=== PATIENT | female | born 1950 | race Caucasian/White ===

== ENCOUNTER 2018-02-07 11:27 | Inpatient (IN) ==
[2018-02-07] MEDS ORDERED: Sod Chloride 0.9% Inj 1,000 ML IV.SIG ONE (12:08)
[2018-02-07] MEDS ORDERED: Acetaminophen 325 MG Tablet PO ONE (12:08)
--- NOTE | 2018-02-07 12:20 | ED ---
HPI General Chief complaint: Respiratory Symptoms Stated complaint: Respiratory/Fever/dizziness Time Seen by Provider: 02/07/18 12:02 History of Present Illness HPI narrative: 67-year-old female presents to the emergency department for evaluation of respiratory complaint. Patient states that yesterday she began to have a sore throat, cough and nausea. States that her cough is productive with green sputum. States that last night she began running a fever 102F. She complains of lightheadedness, chills and body aches that began today. She is here visiting family from [facility]. She does have a history of asthma, states that she has not needed to use her albuterol inhaler yet today. Denies any sick contacts or travel outside the [place]. Denies any chest pain, shortness of breath, difficulty breathing, abdominal pain, diarrhea, constipation. No other complaints or concerns. Related Data Home Medications Medication Instructions Recorded Confirmed albuterol sulfate [Ventolin HFA] 02/07/18 02/07/18 albuterol sulfate [Ventolin HFA] puff INHALATION Q4-6H PRN 02/07/18 amlodipine 10 mg PO DAILY 02/07/18 02/07/18 budesonide-formoterol [Symbicort] 2 puff INHALATION BID PRN 02/07/18 02/07/18 levothyroxine [Synthroid] 50 mcg PO DAILY 02/07/18 02/07/18 valsartan 02/07/18 Allergies Allergy/AdvReac Type Severity Reaction Status Date / Time No Known Allergies Allergy Unverified 02/07/18 12:11 Review of Systems ROS: all other systems reviewed are negative [facility] Medical History Medical History Asthma (Acute) HTN (hypertension) (Acute) Hypothyroid (Acute) Murmur, cardiac (Acute) Social History Social History Smoking Status: Never smoker How Often Do You Have a Drink Containing Alcohol: Never Recent Travel in [facility] within the Last 8 Weeks: No Recent Out of Country Travel within the Last 8 Weeks: No Immunization History Tetanus Immunization: <5 Years Hx Influenza Vaccine This Season: No Exam Narrative Exam Narrative: GENERAL: Well-nourished and well-developed pleasant female patient in no acute distress who is nontoxic appearing. SKIN: Warm and dry without any obvious rashes or lesions. HEAD: Normocephalic and atraumatic. EYES: No injection, drainage, or hyphema noted. PERRLA. EOMI. ENT: No nasal drainage noted. Oropharynx is clear and the TMs are normal with good landmarks. NECK: Supple and the trachea is midline. No lymphadenopathy is noted throughout the cervical chains. CARDIOVASCULAR: Regular rate and rhythm. RESPIRATORY: Wheezing to right lung. No accessory muscle use, rhonchi, or crackles. GASTROINTESTINAL: Abdomen is soft, non-tender, and nondistended. No hepatosplenomegaly. MUSCULOSKELETAL: No obvious deformities, swelling, cyanosis, or ecchymosis is present throughout the upper and lower extremities. Patient has full range of motion without any signs of neurovascular compromise. Distal pulses are 2+ throughout. NEUROLOGICAL: Awake, alert, and oriented. Normal speech and gait. Cranial nerves are grossly intact. Course Initial Documented Vital Signs Temperature 102.8 F H 02/07/18 11:33 Pulse Rate 103 H 02/07/18 11:33 Respiratory Rate 22 02/07/18 11:33 Blood Pressure 144/63 H 02/07/18 11:33 Pulse Oximetry 93 L 02/07/18 11:33 Last Documented Vital Signs Temperature 102.8 F H 02/07/18 11:33 Pulse Rate 86 02/07/18 13:16 Respiratory Rate 22 02/07/18 13:16 Blood Pressure 132/66 02/07/18 12:04 Pulse Oximetry 94 L 02/07/18 12:08 Medical Decision Making LAURA Attestation LAURA supervised visit: Yes Attestation: I, Dr. Cuevas, have reviewed the advance practice practitioner's documentation and am in agreement, met with the patient face to face, made the diagnosis, and the medical decision making was done by me. *My assessment and Findings: Patient seen and evaluated with PA, please see PA notes for further details. Has previous history of respiratory issues and bronchitis, here for worsening in symptoms and fevers, chest x-ray showing signs of a pneumonia. IV antibiotics were initiated in the ER. Nebulizers were initiated in the ER. Planning to admit the patient for further treatment based on signs of sepsis. MDM Narrative Medical decision making narrative: 67-year-old female presents to the emergency department for evaluation of fever with cough and cold symptoms. Patient is noted to have a temperature of 102.8F in the emergency department. Oxygen saturation is 88% on room air, patient is placed on 2 L. Patient is in no acute respiratory distress. Otherwise vital signs are unremarkable. IV access is obtained, labs have been drawn and sent. Patient placed on cardiac telemetry and pulse oximetry monitoring. Patient is administered IV fluids, Zofran 4 mg, Tylenol 650 mg orally. Chest x-ray shows patchy opacity right lung base consistent with infiltration. Patient is administered Zithromax 500 mg IV and Rocephin 1 g IV and an albuterol nebulizer. Differential Diagnosis Differential Diagnosis: Pneumonia versus sepsis versus bronchitis versus viral illness versus influenza Lab Data Lab results reviewed: Yes I reviewed the patient's lab results. Result diagrams: 02/07/18 12:30 02/07/18 12:30 Lab Results 02/07/18 02/07/18 02/07/18 Range/Units 12:30 12:30 12:30 WBC 20.5 H (4.0-11.0) th/mm3 RBC 4.58 (4.00-5.30) mil/mm3 Hgb 13.5 (11.6-15.3) gm/dL Hct 40.9 (35.0-46.0) % MCV 89.4 (80.0-100.0) fL MCH 29.6 (27.0-34.0) pg MCHC 33.1 (32.0-36.0) % RDW 14.6 (11.6-17.2) % Plt Count 221 (150-450) th/mm3 MPV 8.7 (7.0-11.0) fL Prelim Diff (Auto) Slide review pending Neut % (Auto) 86.6 H (16.0-70.0) % Lymph % (Auto) 2.7 L (9.0-44.0) % [place] % (Auto) 10.5 H (0.0-8.0) % Eos % (Auto) 0.1 (0.0-4.0) % Baso % (Auto) 0.1 (0.0-2.0) % Neut # (Auto) 17.8 H (1.8-7.7) th/mm3 Lymph # (Auto) 0.5 L (1.0-4.8) th/mm3 [place] # (Auto) 2.2 H (0.0-0.9) th/mm3 Eos # (Auto) 0.0 (0.0-0.4) th/mm3 Baso # (Auto) 0.0 (0.0-0.2) th/mm3 WBC Differential Manual diff final Seg Neuts % (Manual) 77 H (16-70) % Band Neuts % (Manual) 10 H (0-6) % Lymphocytes % (Manual) 5 L (9-44) % Monocytes % (Manual) 8 (0-8) % Abs Neuts (Manual) 17.8 H (1.8-7.7) th/mm3 Differential Comment . Toxic Vacuolation Present H (None) Platelet Estimate Normal (Normal) Platelet Morphology Normal (Normal) Sodium 141 (136-145) meq/L Potassium 3.5 (3.5-5.1) meq/L Chloride 107 (98-107) meq/L Carbon Dioxide 28.3 (21.0-32.0) meq/L Anion Gap 6 (5-15) meq/L BUN 14 (7-18) mg/dL Creatinine 1.10 H (0.50-1.00) mg/dL Estimated GFR 49 L (>89) mL/min Random Glucose 114 H (74-106) mg/dL Lactic Acid 2.7 H (0.4-2.0) mmol/L Calcium 8.4 L (8.5-10.1) mg/dL Total Bilirubin 0.9 (0.2-1.0) mg/dL AST 54 H (15-37) U/L ALT 49 (10-53) U/L Alkaline Phosphatase 68 (45-117) U/L Total Protein 7.1 (6.4-8.2) g/dL Albumin 3.4 (3.4-5.0) g/dL Imaging Data Attestation: I personally reviewed and interpreted this imaging study as follows : Radiologist's impression: Chest X-Ray 02/07/18 12:08 CONCLUSION: Mild patchy opacity at the right lung base which could represent early infiltrate or pneumonia. Discharge Plan Discharge Disposition Patient Disposition: 30 Still Patient Discharge Condition Condition: Stable Discharge Details Anticipated Discharge Date: 02/07/18 Diagnosis: Pneumonia, Sepsis Physicians Team ED Provider: Carmen Cuevas ED Midlevel Provider: Carlota Fernandez Rxs /Orders / Referrals /Forms Prescriptions: No Action amlodipine 10 mg Tablet 10 mg PO DAILY RF: 0 levothyroxine [Synthroid] 50 mcg Tablet 50 mcg PO DAILY RF: 0 albuterol sulfate [Ventolin HFA] 90 mcg/actuation Hfa Aerosol Inhaler RF: 0 albuterol sulfate [Ventolin HFA] 90 mcg/actuation Hfa Aerosol Inhaler INHALATION Q4-6H PRN (Reason: Shortness Of Breath) RF: 0 budesonide-formoterol [Symbicort] 160-4.5 mcg/actuation Hfa Aerosol Inhaler 2 puff INHALATION BID PRN (Reason: Shortness Of Breath) RF: 0 valsartan RF: 0 Discharge Interventions Interventions: Vital Signs Last Done: 02/07/18 12:04 Status ED Status: With Doctor
--- NOTE | 2018-02-07 12:25 | XR ---
EXAM DATE: 02/07/2018 12:22 PM EDT AGE/SEX: 67 years / Female INDICATIONS: Fever with shortness of breath. CLINICAL DATA: This is the patient's initial encounter. Patient reports that signs and symptoms have been present for 1 day and indicates a pain score of 0/10. MEDICAL/SURGICAL HISTORY: Asthma. Hypertension. . Lap band. COMPARISON: No prior exams available for comparison. FINDINGS: A single AP view of the chest was obtained and demonstrates mild patchy opacity at the right lung bas e. The heart size is at the upper limits of normal with no perihilar edema. There is no effusion. The bony thorax is intact with multiple overlying electrocardiogram leads. There is mild thickening abelardo g the minor fissure. CONCLUSION: Mild patchy opacity at the right lung base which could represent early infiltrate or pneumonia. Electronically signed by: Black Ro MD 02/07/2018 12:24 PM EDT
[2018-02-07] MEDS ORDERED: Azithromycin Inj 500 MG in Sodium Chlor 0.9% Inj 250 ML IV.SIG ONE (12:31)
[2018-02-07] MEDS ORDERED: RESP: Albuterol Concentrated 2.5 MG/0.5 ML Neb NEB ONE (12:31)
[2018-02-07 12:52] LABS: Baso % (Auto) 0.1 % (0.0-2.0); Eos % (Auto) 0.1 % (0.0-4.0); Hematocrit 40.9 % (35.0-46.0); Hemoglobin 13.5 gm/dL (11.6-15.3); Lymph # (Auto) 0.5 th/mm3 (1.0-4.8); Lymph % (Auto) 2.7 % (9.0-44.0); Mean Corpuscular HGB Conc 33.1 % (32.0-36.0); Mean Corpuscular Hemoglobin 29.6 pg (27.0-34.0); Mean Corpuscular Volume 89.4 fL (80.0-100.0); Mean Platelet Volume 8.7 fL (7.0-11.0); Mono # (Auto) 2.2 th/mm3 (0.0-0.9); Mono % (Auto) 10.5 % (0.0-8.0); Neut # (Auto) 17.8 th/mm3 (1.8-7.7); Neut % (Auto) 86.6 % (16.0-70.0); Platelet Count 221 th/mm3 (150-450); Red Blood Count 4.58 mil/mm3 (4.00-5.30); Red Cell Distribution Width 14.6 % (11.6-17.2); White Blood Count 20.5 th/mm3 (4.0-11.0)
[2018-02-07 13:04] LABS: Alanine Aminotransferase 49 U/L (10-53); Albumin 3.4 g/dL (3.4-5.0); Anion Gap 6 meq/L (5-15); Aspartate Aminotransferase 54 U/L (15-37); Blood Urea Nitrogen 14 mg/dL (7-18); Calcium 8.4 mg/dL (8.5-10.1); Carbon Dioxide 28.3 meq/L (21.0-32.0); Chloride 107 meq/L (98-107); Glomerular Filtration Rate 49 mL/min (>89); Glucose,Random 114 mg/dL (74-106); Potassium 3.5 meq/L (3.5-5.1); Sodium 141 meq/L (136-145)
[2018-02-07 13:07] LABS: Alkaline Phosphatase 68 U/L (45-117); Total Protein 7.1 g/dL (6.4-8.2)
[2018-02-07 13:22] LABS: Lymphocytes 5 % (9-44); Monocytes 8 % (0-8)
[2018-02-07 13:23] LABS: Platelet Estimate Normal (Normal); Platelet Morphology Normal (Normal); Toxic Vacuolation Present
[2018-02-07 13:58] LABS: Bacteria,Urine Occasional /hpf; Bilirubin,Urine Negative (Negative); Clarity,Urine Cloudy (Clear); Color,Urine Amber (Yellw/Straw); Glucose,Urine (UA) Negative (Negative); Hyaline Casts,Urine 12 /lpf (0-3); Leukocyte Esterase,Urine Moderate (Negative); Mucus,Urine Many /lpf (Occasional); Nitrite,Urine Negative (Negative); Renal Epithelial Cells,Urine <1 /hpf; Specific Gravity,Urine 1.023 (1.002-1.035); Squamous Epithelial Cell,Urine 20 /hpf (0-5); Urobilinogen,Urine 4 or Greater mg/dL (Less than 2)
--- NOTE | 2018-02-07 14:08 | P.HP ---
History of Present Illness Primary Care Physician: Stacey Moore Chief Complaint: Fever, Dizziness History of Present Illness: This is a pleasant 67 y/o female who came to Emergency Department for evaluation of respiratory complaint yesterday began to have a sore throat, cough and nausea, productive cough with productive sputum production States that last night she began running a fever 102F. She complains of lightheadedness, chills and body aches that began today. She is here visiting family from [facility]. She does have a history of asthma, states that she has not needed to use her albuterol inhaler yet today. Denies any sick contacts or travel outside the [place]. Denies any chest pain, shortness of breath, difficulty breathing, abdominal pain, diarrhea, constipation. No other complaints or concerns. Seen in Emergency room, obese patient in no acute distress. has Productive cough Review of Systems All other systems reviewed negative except as stated in HPI Respiratory: Reports cough, Reports excessive phlegm production, Reports shortness of breath, Reports wheezing PMFSH - History History Provided By: Patient, Family Member - Medical History Medical History: Medical History (Last Updated 02/07/18 @ 14:49 by Aakash Sutton MD) Asthma HTN (hypertension) Hypothyroid Murmur, cardiac - Family History Family History: Family History (Last Updated 02/07/18 @ 14:49 by Aakash Sutton MD) Other Family history of acute myocardial infarction Family history of diabetes mellitus Family history of hypertension - Tobacco History Second Hand Smoke Exposure: No Tobacco Use In Past 30 Days: No Smoking Status: Never smoker - Alcohol History How Often Do You Have a Drink Containing Alcohol: Never - Travel History Recent Travel in the [facility] Within the Last 8 Weeks: No Recent Travel Out of the Country Within the Last 8 Weeks: No - Immunization History Tetanus Immunization: <5 Years Hx Influenza Vaccine This Season: No Medications and Allergies Active Medications: Active Medications Albuterol (Albuterol Neb (Prn)) 2.5 mg NEB Q15M PRN PRN Reason: SHORTNESS OF BREATH Last Admin: 02/07/18 13:15 Dose: 2.5 mg Sodium Chloride (Ns Flush) 2 ml IV.FLUSH PRN PRN PRN Reason: FLUSH AFTER USING IV ACCESS Allergies Allergy/AdvReac Type Severity Reaction Status Date / Time No Known Allergies Allergy Unverified 02/07/18 12:11 Home Medications Medication Instructions Recorded Confirmed Type albuterol sulfate [Ventolin HFA] 02/07/18 02/07/18 History albuterol sulfate [Ventolin HFA] puff INHALATION Q4-6H PRN 02/07/18 History amlodipine 10 mg PO DAILY 02/07/18 02/07/18 History budesonide-formoterol [Symbicort] 2 puff INHALATION BID PRN 02/07/18 02/07/18 History levothyroxine [Synthroid] 50 mcg PO DAILY 02/07/18 02/07/18 History valsartan 02/07/18 History Exam Vital signs: Vital Signs 02/07/18 11:33 02/07/18 12:04 02/07/18 12:08 Temperature 102.8 F H Pulse Rate 103 H 86 82 Respiratory Rate 22 22 Blood Pressure 144/63 H 132/66 Pulse Oximetry 93 L 88 L 94 L 02/07/18 13:16 Temperature Pulse Rate 86 Respiratory Rate 22 Blood Pressure Pulse Oximetry Intake & Output 02/06/18 02/07/18 02/07/18 18:59 06:59 18:59 Weight 124.738 kg Narrative: GENERAL: Well developed, Morbid Obese patient, in no acute distress. SKIN: Warm and dry without any obvious rashes or lesions. HEAD: Normocephalic and atraumatic. EYES: No injection, drainage, or hyphema noted. PERRLA. EOMI. ENT: No nasal drainage noted. Oropharynx is clear and the TMs are normal with good landmarks. NECK: Supple and the trachea is midline. No lymphadenopathy is noted throughout the cervical chains. CARDIOVASCULAR: Regular rate and rhythm. RESPIRATORY: Wheezing to right lung. decreased breath sounds bilateral, has crackles on left base. GASTROINTESTINAL: Abdomen is soft, non-tender, and nondistended. No hepatosplenomegaly. MUSCULOSKELETAL: No obvious deformities, cyanosis, or ecchymosis, Edema 2+ NEUROLOGICAL: Awake, alert, and oriented. Normal speech and gait. Cranial nerves are grossly intact. Results - Labs CBC & Chem 7: 02/07/18 12:30 02/07/18 12:30 Labs: Laboratory Results - last 24 hr 02/07/18 02/07/18 02/07/18 12:30 12:30 12:30 WBC 20.5 H RBC 4.58 Hgb 13.5 Hct 40.9 MCV 89.4 MCH 29.6 MCHC 33.1 RDW 14.6 Plt Count 221 MPV 8.7 Prelim Diff (Auto) Slide review pending Neut % (Auto) 86.6 H Lymph % (Auto) 2.7 L [place] % (Auto) 10.5 H Eos % (Auto) 0.1 Baso % (Auto) 0.1 Neut # (Auto) 17.8 H Lymph # (Auto) 0.5 L [place] # (Auto) 2.2 H Eos # (Auto) 0.0 Baso # (Auto) 0.0 WBC Differential Manual diff final Seg Neuts % (Manual) 77 H Band Neuts % (Manual) 10 H Lymphocytes % (Manual) 5 L Monocytes % (Manual) 8 Abs Neuts (Manual) 17.8 H Differential Comment . Toxic Vacuolation Present H Platelet Estimate Normal Platelet Morphology Normal Sodium 141 Potassium 3.5 Chloride 107 Carbon Dioxide 28.3 Anion Gap 6 BUN 14 Creatinine 1.10 H Estimated GFR 49 L Random Glucose 114 H Lactic Acid 2.7 H Calcium 8.4 L Total Bilirubin 0.9 AST 54 H ALT 49 Alkaline Phosphatase 68 Total Protein 7.1 Albumin 3.4 - Imaging Impressions Chest X-Ray 02/07/18 12:08 CONCLUSION: Mild patchy opacity at the right lung base which could represent early infiltrate or pneumonia. Caprini VTE Risk Assessment Caprini VTE Risk Assessment: Moderate/High Risk (score >= 2) Caprini Risk Assessment Model: Point Value = 1 Point Value = 2 Point Value = 3 Point Value = 5 Age 41-60 Minor surgery BMI > 25 kg/m2 Swollen legs Varicose veins or History of unexplained or recurrent spontaneous Oral contraceptives or hormone replacement Sepsis (< 1 month) Serious lung disease, including pneumonia (< 1 month) Abnormal pulmonary function Acute myocardial infarction Congestive heart failure (< 1 month) History of inflammatory bowel disease Medical patient at bed rest Age 61-74 Arthroscopic surgery Major open surgery (> 45 min) Laparoscopic surgery (> 45 min) Malignancy Confined to bed (> 72 hours) Immobilizing plaster cast Central venous access Age >= 75 History of VTE Family history of VTE Factor V Leiden Prothrombin [id number] Lupus anticoagulant Anticardiolipin antibodies Elevated serum homocysteine Heparin-induced thrombocytopenia Other congenital or acquired thrombophilia Stroke (< 1 month) Elective arthroplasty Hip, pelvis, or leg fracture Acute spinal cord injury (< 1 month) Prophylaxis Regimen: Total Risk Factor Score Risk Level Prophylaxis Regimen 0-1 Low Early ambulation 2 Moderate Order ONE of the following: *Sequential Compression Device (SCD) *Heparin 5000 units SQ BID 3-4 Higher Order ONE of the following medications: *Heparin 5000 units SQ TID *Enoxaparin/Lovenox 40 mg SQ daily (WT < 150 kg, CrCl > 30 mL/min) *Enoxaparin/Lovenox 30 mg SQ daily (WT < 150 kg, CrCl > 10-29 mL/min) *Enoxaparin/Lovenox 30 mg SQ BID (WT < 150 kg, CrCl > 30 mL/min) AND/OR *Sequential Compression Device (SCD) 5 or more Highest Order ONE of the following medications: *Heparin 5000 units SQ TID (Preferred with Epidurals) *Enoxaparin/Lovenox 40 mg SQ daily (WT < 150 kg, CrCl > 30 mL/min) *Enoxaparin/Lovenox 30 mg SQ daily (WT < 150 kg, CrCl > 10-29 mL/min) *Enoxaparin/Lovenox 30 mg SQ BID (WT < 150 kg, CrCl > 30 mL/min) AND *Sequential Compression Device (SCD) Assessment and Plan - Plan 1. Sepsis with known source for Pneumonia, started on Ceftriaxone and Azithromycin in ER hospitalized, continue IV fluids, IV antibiotics, follow sputum culture, blood culture, lactic acid, Legionella antigen and Pneumococcal antigen Fever, Respiratory rate 22, WBC [id number] known infection source. 2. Leukocytosis following 3. Asthma on Bronchodilator, Mucolytic and incentive spirometry 4. Hypertension controlled continue Home medicines 5. Hypothyroidism continue Hormonal therapy. 6. Morbid obesity strongly recommended diet and exercise DVT prophylaxis with Heparin.
[2018-02-07] MEDS ORDERED: Bisacodyl 10 MG Supp RECTAL PRN (14:14)
[2018-02-07] MEDS ORDERED: Temazepam 15 MG Capsule PO PRN (14:14)
[2018-02-07] MEDS: Sod Chloride 0.9% Inj 1,000 ML IV.CONT SCH ×2 (16:30→22:36)
[2018-02-07] MEDS: Heparin - SQ 10,000 UNITS/ML Vial SQ SCH (16:30)
[2018-02-07] MEDS: Senna/Docusate Sodium 8.6/50 MG Tablet PO SCH (22:25)
[2018-02-07] MEDS: guaiFENesin 600 MG ER Tablet PO SCH (22:25)
[2018-02-08] MEDS: Heparin - SQ 10,000 UNITS/ML Vial SQ SCH ×2 (02:41→15:06)
[2018-02-08 04:56] LABS: Baso # (Auto) 0.1 th/mm3 (0.0-0.2); Baso % (Auto) 0.4 % (0.0-2.0); Eos % (Auto) 0.1 % (0.0-4.0); Hematocrit 37.3 % (35.0-46.0); Hemoglobin 12.2 gm/dL (11.6-15.3); Lymph # (Auto) 1.6 th/mm3 (1.0-4.8); Lymph % (Auto) 8.8 % (9.0-44.0); Mean Corpuscular HGB Conc 32.6 % (32.0-36.0); Mean Corpuscular Hemoglobin 29.5 pg (27.0-34.0); Mean Corpuscular Volume 90.6 fL (80.0-100.0); Mono # (Auto) 1.6 th/mm3 (0.0-0.9); Mono % (Auto) 8.7 % (0.0-8.0); Neut # (Auto) 15.4 th/mm3 (1.8-7.7); Platelet Count 191 th/mm3 (150-450); Red Blood Count 4.12 mil/mm3 (4.00-5.30); Red Cell Distribution Width 14.8 % (11.6-17.2); White Blood Count 18.7 th/mm3 (4.0-11.0)
[2018-02-08 05:13] LABS: Calcium 8.2 mg/dL (8.5-10.1); Carbon Dioxide 27.1 meq/L (21.0-32.0)
[2018-02-08] MEDS: Levothyroxine 50 MCG Tablet PO SCH (05:39)
[2018-02-08] MEDS: guaiFENesin 600 MG ER Tablet PO SCH ×2 (08:44→21:06)
[2018-02-08] MEDS: Sod Chloride 0.9% Inj 1,000 ML IV.CONT SCH ×3 (08:45→15:08)
[2018-02-08] MEDS: amLODIPine 10 MG Tablet PO SCH (08:45)
[2018-02-08] MEDS: Senna/Docusate Sodium 8.6/50 MG Tablet PO SCH ×2 (12:11→21:06)
[2018-02-08] MEDS: Azithromycin Inj 500 MG in Sodium Chlor 0.9% Inj 250 ML IV.SIG SCH (12:20)
--- NOTE | 2018-02-08 12:24 | P.PN ---
Subjective Interval history: feeling better, T down still with some mild sore thorat/discomfort cough minimal dry good IS efforts Physical Exam Vital signs: Vital Signs 02/07/18 13:16 02/07/18 14:10 02/07/18 16:08 Temperature 99.6 F 98.5 F Pulse Rate 86 70 73 Respiratory Rate 22 20 19 Blood Pressure 136/58 L 134/59 L Pulse Oximetry 94 L 96 02/07/18 17:02 02/07/18 20:00 02/07/18 20:41 Temperature 98.3 F Pulse Rate 69 67 71 Respiratory Rate 12 18 Blood Pressure 103/65 Pulse Oximetry 95 02/08/18 00:00 02/08/18 00:59 02/08/18 03:41 Temperature 98.7 F Pulse Rate 74 81 84 Respiratory Rate 18 19 Blood Pressure 110/62 Pulse Oximetry 93 L 90 L 02/08/18 04:00 02/08/18 08:00 02/08/18 09:00 Temperature 98.8 F 98.2 F Pulse Rate 82 89 84 Respiratory Rate 20 18 Blood Pressure 153/69 H 145/64 H Pulse Oximetry 94 L 96 02/08/18 10:44 Temperature Pulse Rate 72 Respiratory Rate 12 Blood Pressure Pulse Oximetry 96 Intake & Output 02/07/18 02/08/18 02/08/18 18:59 06:59 18:59 Intake Total 1000 / 1000 1000 / 1000 Balance 1000 / 1000 1000 / 1000 Weight 124.738 kg 125 kg Intake: IV 1000 / 1000 1000 / 1000 NS Inj 1,000 ML @ 100 mls/hr IV 1000 / 1000 1000 / 1000 .CONT .Q10H [facility] Rx#:[id number] Other: Date of Last Bowel Movement 02/07/18 Narrative: heavy set awake and alert, no acute distress anicteric throat- no exudates, no erythema, no tonsillary hypertrophy neck supple. chest.Lungs- symmetrical exapnasion, no rales, no wheezes, few rhonchi regular rhythm abdomen- flabby soft, nontender extremities no edema neuro exam- non focal Results - Labs CBC & Chem 7: 02/09/18 08:10 02/09/18 08:10 Laboratory Results - last 24 hr 02/07/18 02/07/18 02/07/18 12:30 12:30 12:30 WBC 20.5 H RBC 4.58 Hgb 13.5 Hct 40.9 MCV 89.4 MCH 29.6 MCHC 33.1 RDW 14.6 Plt Count 221 MPV 8.7 Prelim Diff (Auto) Slide review pending Neut % (Auto) 86.6 H Lymph % (Auto) 2.7 L Long % (Auto) 10.5 H Eos % (Auto) 0.1 Baso % (Auto) 0.1 Neut # (Auto) 17.8 H Lymph # (Auto) 0.5 L Long # (Auto) 2.2 H Eos # (Auto) 0.0 Baso # (Auto) 0.0 WBC Differential Manual diff final Seg Neuts % (Manual) 77 H Band Neuts % (Manual) 10 H Lymphocytes % (Manual) 5 L Monocytes % (Manual) 8 Abs Neuts (Manual) 17.8 H Differential Comment . Toxic Vacuolation Present H Platelet Estimate Normal Platelet Morphology Normal Sodium 141 Potassium 3.5 Chloride 107 Carbon Dioxide 28.3 Anion Gap 6 BUN 14 Creatinine 1.10 H Estimated GFR 49 L Random Glucose 114 H Lactic Acid 2.7 H Calcium 8.4 L Total Bilirubin 0.9 AST 54 H ALT 49 Alkaline Phosphatase 68 Total Protein 7.1 Albumin 3.4 Urine Color Urine Clarity Urine pH Ur Specific [place] Urine Protein Urine Glucose (UA) Urine Ketones Urine Occult Blood Urine Nitrate Urine Bilirubin Urine Urobilinogen Ur Leukocyte Esterase Urine RBC Urine WBC Ur Squamous Epith Cells Ur Renal Epithelial Cell Urine Bacteria Hyaline Casts Urine Mucus Micro UA Comment Urine Culture Comments 02/07/18 02/07/18 02/08/18 13:05 15:18 04:10 WBC 18.7 H RBC 4.12 Hgb 12.2 Hct 37.3 MCV 90.6 MCH 29.5 MCHC 32.6 RDW 14.8 Plt Count 191 MPV 9.0 Prelim Diff (Auto) Neut % (Auto) 82.0 H Lymph % (Auto) 8.8 L Long % (Auto) 8.7 H Eos % (Auto) 0.1 Baso % (Auto) 0.4 Neut # (Auto) 15.4 H Lymph # (Auto) 1.6 Long # (Auto) 1.6 H Eos # (Auto) 0.0 Baso # (Auto) 0.1 WBC Differential . Seg Neuts % (Manual) Band Neuts % (Manual) Lymphocytes % (Manual) Monocytes % (Manual) Abs Neuts (Manual) Differential Comment Auto diff final Toxic Vacuolation Platelet Estimate Platelet Morphology Sodium Potassium Chloride Carbon Dioxide Anion Gap BUN Creatinine Estimated GFR Random Glucose Lactic Acid 1.3 Calcium Total Bilirubin AST ALT Alkaline Phosphatase Total Protein Albumin Urine Color Nelly Urine Clarity Cloudy H Urine pH 5.0 Ur Specific [place] 1.023 Urine Protein 30 H Urine Glucose (UA) Negative Urine Ketones Trace H Urine Occult Blood Negative Urine Nitrate Negative Urine Bilirubin Negative Urine Urobilinogen 4 or greater Ur Leukocyte Esterase Moderate H Urine RBC 2 Urine WBC 24 H Ur Squamous Epith Cells 20 Ur Renal Epithelial Cell <1 Urine Bacteria Occasional H Hyaline Casts 12 Urine Mucus Many H Micro UA Comment Culture indicated Urine Culture Comments Culture indicated 02/08/18 04:10 WBC RBC Hgb Hct MCV MCH MCHC RDW Plt Count MPV Prelim Diff (Auto) Neut % (Auto) Lymph % (Auto) Long % (Auto) Eos % (Auto) Baso % (Auto) Neut # (Auto) Lymph # (Auto) Long # (Auto) Eos # (Auto) Baso # (Auto) WBC Differential Seg Neuts % (Manual) Band Neuts % (Manual) Lymphocytes % (Manual) Monocytes % (Manual) Abs Neuts (Manual) Differential Comment Toxic Vacuolation Platelet Estimate Platelet Morphology Sodium 144 Potassium 4.0 Chloride 110 H Carbon Dioxide 27.1 Anion Gap 7 BUN 14 Creatinine 0.87 Estimated GFR 65 L Random Glucose 103 Lactic Acid Calcium 8.2 L Total Bilirubin AST ALT Alkaline Phosphatase Total Protein Albumin Urine Color Urine Clarity Urine pH Ur Specific [place] Urine Protein Urine Glucose (UA) Urine Ketones Urine Occult Blood Urine Nitrate Urine Bilirubin Urine Urobilinogen Ur Leukocyte Esterase Urine RBC Urine WBC Ur Squamous Epith Cells Ur Renal Epithelial Cell Urine Bacteria Hyaline Casts Urine Mucus Micro UA Comment Urine Culture Comments Microbiology 02/07/18 13:05 Clean Catch Urine Urine Culture - Preliminary Immature growth - reincubate 02/07/18 12:30 Blood - Peripheral Aerobic Blood Culture - Preliminary No growth in 1 day 02/07/18 12:30 Blood - Peripheral Anaerobic Blood Culture - Final QNS - See aerobic report. 02/07/18 12:30 Blood - Peripheral Aerobic Blood Culture - Preliminary No growth in 1 day 02/07/18 12:30 Blood - Peripheral Anaerobic Blood Culture - Preliminary No growth in 1 day 02/07/18 13:00 Sputum - Expectorated Sputum Gram Stain - Final 02/07/18 13:05 Urine - Clean Catch Urine Streptococcus pneumoniae Antigen ( M - Final Presumptive negative for streptococcus pneumoniae antigen, suggesting no current or recent infection. Infection due to Streptococcus pneumoniae cannot be ruled out since the antigen present in the sample may be below the detection limit of the test. 02/07/18 13:05 Urine - Clean Catch Urine Legionella Antigen - Final Presumptive negative for Legionella pneumophila serogroup 1 antigen in urine, suggesting no recent or recurrent infection. Infection due to Legionella cannot be ruled out since other serogroups and species may cause disease, antigen may not be present in urine in early infection, and the level of antigen present in the urine may be below the detection limit of the test. 02/07/18 12:30 Nasal Wash Influenza Types A,B Antigen - Final Negative for FLU A and B antigen Infection due to influenza A or B cannot be ruled out since the antigen present in the sample may be below the detection limit of the test. - Imaging Impressions Chest X-Ray 02/07/18 12:08 CONCLUSION: Mild patchy opacity at the right lung base which could represent early infiltrate or pneumonia. Assessment and Plan - Plan 67 years old female- here visiting presenting with fever, chills, sore throat, cough Sepsis - source Pneumonia Leukocytosis- from above ff CBC clinically feeling better, T down blood culture so far negative ff sputum studies continue on Ceftriaxone and Azithromycin in ER Reactive airway disease from PNA on admission H and P-- exam with wheezing this am- no wheezing, occasional rhonchis continue on duonebs treatment will get PFTs- patient heavy set- pre and post neb treatment - family denies episodes of apnea or snoring when she sleeps no history of smoking , no history fo asthma Hypertension controlled continue Home medicines- patient on Losartan 50 mg daily and Amlodipine 10 mg daily Hypothyroidism continue home Synthroid Morbid obesity strongly recommended diet and exercise Heparin SQ for DVT prophylaxis Encourage patient to up and ambulate
[2018-02-09] MEDS: Heparin - SQ 10,000 UNITS/ML Vial SQ SCH ×2 (03:00→15:54)
[2018-02-09] MEDS: Levothyroxine 50 MCG Tablet PO SCH (05:08)
[2018-02-09] MEDS: Sod Chloride 0.9% Inj 1,000 ML IV.CONT SCH (06:47)
--- NOTE | 2018-02-09 08:52 | P.PNIM ---
Subjective Interval history: f/u; pneumonia says that she's feeling better today but still with mild sob, wheezing and cough. currently on four liters of oxygen via [place] no fever. Physical Exam Vital signs: Vital Signs 02/08/18 09:00 02/08/18 10:44 02/08/18 12:00 Temperature 98.3 F Pulse Rate 84 72 73 Respiratory Rate 12 20 Blood Pressure 146/74 H Pulse Oximetry 96 94 L 02/08/18 16:00 02/08/18 16:38 02/08/18 18:00 Temperature 98.1 F Pulse Rate 60 61 71 Respiratory Rate 12 18 Blood Pressure 132/60 Pulse Oximetry 94 L 02/08/18 19:47 02/08/18 20:00 02/08/18 20:06 Temperature 98.4 F Pulse Rate 64 78 73 Respiratory Rate 18 16 Blood Pressure 145/65 H Pulse Oximetry 96 02/08/18 20:09 02/08/18 23:46 02/09/18 00:00 Temperature 98.2 F Pulse Rate 85 86 Respiratory Rate 18 Blood Pressure 120/59 L Pulse Oximetry 93 L 94 L 02/09/18 03:41 02/09/18 03:45 02/09/18 04:00 Temperature 97.7 F Pulse Rate 83 60 75 Respiratory Rate 16 16 Blood Pressure 127/58 L Pulse Oximetry 97 Intake & Output 02/08/18 02/09/18 02/09/18 18:59 06:59 18:59 Intake Total 2830 / 2830 960 / 960 Output Total 950 / 950 Balance 2830 / 2830 10 / 10 Weight 128.2 kg Intake: IV 2350 / 2350 NS Inj 1,000 ML @ 100 mls/hr IV 1999 / 1999 .CONT .Q10H [facility] Rx#:[id number] Azithromycin Inj 500 MG In NS 250 / 250 Inj 250 ML @ 250 mls/hr IV.SIG Q24H [facility] Rx#:[id number] Rocephin Inj 1,000 MG In NS Inj 100 / 100 100 ML @ 200 mls/hr IV.SIG Q24H [facility] Rx#:[id number] Oral 480 / 480 960 / 960 Output: Urine 950 / 950 Other: # Voids 3 - Constitutional mild distress - Routine Respiratory Exam Present: prolonged expiratory phase, wheezes - Routine Cardiovascular Exam Present: RRR - Routine Abdominal Exam Present: soft - Routine Exam Comments: no pedal edema. - Routine Neurological Exam Present: alert, oriented X3 Results - Labs CBC & Chem 7: 02/08/18 04:10 02/08/18 04:10 Microbiology 02/07/18 13:00 Sputum - Expectorated Sputum Gram Stain - Final 02/07/18 13:00 Sputum - Expectorated Sputum Sputum Culture - Preliminary Heavy growth normal respiratory doug at 24 hours 02/07/18 13:05 Clean Catch Urine Urine Culture - Preliminary Immature growth - reincubate 02/07/18 12:30 Blood - Peripheral Aerobic Blood Culture - Preliminary No growth in 1 day 02/07/18 12:30 Blood - Peripheral Anaerobic Blood Culture - Final QNS - See aerobic report. 02/07/18 12:30 Blood - Peripheral Aerobic Blood Culture - Preliminary No growth in 1 day 02/07/18 12:30 Blood - Peripheral Anaerobic Blood Culture - Preliminary No growth in 1 day Assessment and Plan - Plan Sepsis with known source for Pneumonia Leukocytosis- from above ff CBC clinically feeling better, T down blood culture so far negative sputum culture with normal respiratory doug continue on Ceftriaxone and Azithromycin will taper down the oxygen to keep O2 sat > 90%. Reactive airway disease from PNA on admission H and P-- exam with wheezing continue on duonebs treatment no history of smoking , but has history of asthma Hypertension controlled continue Home medicines- patient on Losartan 50 mg daily and Amlodipine 10 mg daily Hypothyroidism continue home Synthroid Morbid obesity strongly recommended diet and exercise Heparin SQ for DVT prophylaxis Encourage patient to up and ambulate Discharge Planning: dc home within the next 24-48b hrs if stable; will start tapering down the oxygen.
[2018-02-09 09:24] LABS: Baso % (Auto) 0.4 % (0.0-2.0); Eos # (Auto) 0.1 th/mm3 (0.0-0.4); Eos % (Auto) 1.3 % (0.0-4.0); Hemoglobin 11.8 gm/dL (11.6-15.3); Lymph # (Auto) 1.6 th/mm3 (1.0-4.8); Mean Corpuscular HGB Conc 33.8 % (32.0-36.0); Mean Corpuscular Hemoglobin 30.3 pg (27.0-34.0); Mean Corpuscular Volume 89.6 fL (80.0-100.0); Mean Platelet Volume 9.2 fL (7.0-11.0); Mono % (Auto) 9.5 % (0.0-8.0); Neut # (Auto) 7.9 th/mm3 (1.8-7.7); Neut % (Auto) 73.8 % (16.0-70.0); Platelet Count 177 th/mm3 (150-450); Red Cell Distribution Width 14.7 % (11.6-17.2); White Blood Count 10.8 th/mm3 (4.0-11.0)
[2018-02-09] MEDS: amLODIPine 10 MG Tablet PO SCH (09:39)
[2018-02-09] MEDS: Senna/Docusate Sodium 8.6/50 MG Tablet PO SCH ×2 (09:39→21:02)
[2018-02-09] MEDS: guaiFENesin 600 MG ER Tablet PO SCH ×2 (09:39→21:02)
[2018-02-09 09:49] LABS: Calcium 8.2 mg/dL (8.5-10.1); Carbon Dioxide 28.6 meq/L (21.0-32.0)
[2018-02-09] MEDS ORDERED: Budesonide-Formoterol 160/4.5 MCG 6 GM Inhaler INH PRN (10:00)
[2018-02-09] MEDS: Azithromycin Inj 500 MG in Sodium Chlor 0.9% Inj 250 ML IV.SIG SCH (13:28)
[2018-02-10] MEDS: Sod Chloride 0.9% Inj 1,000 ML IV.CONT SCH (00:50)
[2018-02-10] MEDS: Heparin - SQ 10,000 UNITS/ML Vial SQ SCH (02:23)
[2018-02-10] MEDS ORDERED: Acetaminophen 325 MG Tablet PO PRN (02:29)
[2018-02-10] MEDS: Levothyroxine 50 MCG Tablet PO SCH (06:47)
--- NOTE | 2018-02-10 08:17 | P.PNIM ---
Subjective Interval history: f/u; pneumonia looks and feels better today. says that sob has much improved and is willing to go home. no fever or any other complaints. Physical Exam Vital signs: Vital Signs 02/09/18 09:00 02/09/18 09:02 02/09/18 12:00 Temperature 97.6 F Pulse Rate 64 75 65 Respiratory Rate 12 18 Blood Pressure 114/56 L Pulse Oximetry 95 97 Pulse Oximetry [Resting on Room Air] Pulse Oximetry [Resting with Oxygen] 02/09/18 13:32 02/09/18 14:00 02/09/18 15:50 Temperature Pulse Rate 77 Respiratory Rate 12 Blood Pressure Pulse Oximetry 95 89 L Pulse Oximetry [Resting on Room Air] Pulse Oximetry [Resting with Oxygen] 02/09/18 16:00 02/09/18 16:54 02/09/18 18:00 Temperature 98.1 F Pulse Rate 84 78 Respiratory Rate 18 Blood Pressure 155/65 H Pulse Oximetry 96 Pulse Oximetry [Resting on Room Air] 88 L Pulse Oximetry [Resting with Oxygen] 97 02/09/18 20:00 02/09/18 21:23 02/09/18 23:53 Temperature 98.0 F Pulse Rate 83 76 67 Respiratory Rate 18 18 Blood Pressure 151/66 H Pulse Oximetry 94 L 95 Pulse Oximetry [Resting on Room Air] Pulse Oximetry [Resting with Oxygen] 02/10/18 04:00 02/10/18 04:05 02/10/18 04:38 Temperature 97.7 F Pulse Rate 71 62 70 Respiratory Rate 18 18 Blood Pressure 148/65 H Pulse Oximetry 92 L Pulse Oximetry [Resting on Room Air] Pulse Oximetry [Resting with Oxygen] 02/10/18 07:58 Temperature Pulse Rate 63 Respiratory Rate 16 Blood Pressure Pulse Oximetry 98 Pulse Oximetry [Resting on Room Air] Pulse Oximetry [Resting with Oxygen] Intake & Output 02/09/18 02/10/18 02/10/18 18:59 06:59 18:59 Intake Total 1070 / 1070 1120 / 1120 Output Total 700 / 700 950 / 950 Balance 370 / 370 170 / 170 Weight 129.3 kg Intake: IV 350 / 350 1000 / 1000 NS Inj 1,000 ML @ 60 mls/hr IV. 1000 / 1000 CONT .[id number] [facility] Rx#:[id number] Azithromycin Inj 500 MG In NS 250 / 250 Inj 250 ML @ 250 mls/hr IV.SIG Q24H [facility] Rx#:[id number] Rocephin Inj 1,000 MG In NS Inj 100 / 100 100 ML @ 200 mls/hr IV.SIG Q24H [facility] Rx#:[id number] Oral 720 / 720 120 / 120 Output: Urine 700 / 700 950 / 950 Other: Date of Last Bowel Movement 02/07/18 - Constitutional no acute distress - Routine Respiratory Exam Present: CTA bilaterally (minimal wheezing.) - Routine Cardiovascular Exam Present: RRR - Routine Abdominal Exam Present: soft - Routine Extremities Exam Comments: no pedal edema. - Routine Neurological Exam Present: alert, oriented X3 Results - Labs CBC & Chem 7: 02/09/18 08:10 02/09/18 08:10 Laboratory Results - last 24 hr 02/09/18 02/09/18 08:10 08:10 WBC 10.8 RBC 3.90 L Hgb 11.8 Hct 35.0 MCV 89.6 MCH 30.3 MCHC 33.8 RDW 14.7 Plt Count 177 MPV 9.2 Neut % (Auto) 73.8 H Lymph % (Auto) 15.0 [place] % (Auto) 9.5 H Eos % (Auto) 1.3 Baso % (Auto) 0.4 Neut # (Auto) 7.9 H Lymph # (Auto) 1.6 [place] # (Auto) 1.0 H Eos # (Auto) 0.1 Baso # (Auto) 0.0 WBC Differential . Differential Comment Auto diff final Sodium 143 Potassium 4.0 Chloride 107 Carbon Dioxide 28.6 Anion Gap 7 BUN 13 Creatinine 0.67 Estimated GFR 87 L Random Glucose 92 Calcium 8.2 L Microbiology 02/07/18 13:05 Clean Catch Urine Urine Culture - Final <10,000 cfu/mL mixed gram positive doug - no further workup 02/07/18 13:00 Sputum - Expectorated Sputum Gram Stain - Final 02/07/18 13:00 Sputum - Expectorated Sputum Sputum Culture - Final Heavy growth normal respiratory doug 02/07/18 12:30 Blood - Peripheral Aerobic Blood Culture - Preliminary No growth in 2 days 02/07/18 12:30 Blood - Peripheral Anaerobic Blood Culture - Final QNS - See aerobic report. 02/07/18 12:30 Blood - Peripheral Aerobic Blood Culture - Preliminary No growth in 2 days 02/07/18 12:30 Blood - Peripheral Anaerobic Blood Culture - Preliminary No growth in 2 days Assessment and Plan - Plan Sepsis with known source for Pneumonia- improved. asthma Leukocytosis- from above-resolved. clinically feeling better blood culture so far negative sputum culture with normal respiratory doug will switch to po antibiotics upon discharge. initially failed the walk test; will repeat the walk test today. continue home inhalers. Hypertension controlled continue Home medicines- patient on Losartan 50 mg daily and Amlodipine 10 mg daily Hypothyroidism continue home Synthroid Morbid obesity strongly recommended diet and exercise Heparin SQ for DVT prophylaxis Encourage patient to up and ambulate Discharge Planning: dc home today- pending repeated walk test. see med list. f/u; pcp. d/w the patient.
--- NOTE | 2018-02-10 08:19 | P.DS ---
Date of admission: 02/07/18 13:28 Primary care physician: Stacey Moore Brief History from admission: This is a pleasant 67 y/o female who came to Emergency Department for evaluation of respiratory complaint yesterday began to have a sore throat, cough and nausea, productive cough with productive sputum production States that last night she began running a fever 102F. She complains of lightheadedness, chills and body aches that began today. She is here visiting family from [facility]. She does have a history of asthma, states that she has not needed to use her albuterol inhaler yet today. Denies any sick contacts or travel outside the [place]. Denies any chest pain, shortness of breath, difficulty breathing, abdominal pain, diarrhea, constipation. No other complaints or concerns. Seen in Emergency room, obese patient in no acute distress. has Productive cough DS: Medications - Discharge Medications Prescriptions: azithromycin [Zithromax] 250 mg PO DAILY 3 Days #3 tab cefuroxime axetil 500 mg PO Q12H 7 Days #14 tab DS: Summary Hospital Course: patient was admitted with sepsis/ pneumonia. she was started on IV antibiotics, neb treatment. blood cultures negative and sputum culture with normal respiratory doug. her clinical condition improved. she will be discharged with oral antibiotics with f/u with her pcp. - Time Spent with Patient Total time spent providing and/or coordinating discharge services: Less than 30 minutes Exam Vital signs: Vital Signs 02/09/18 09:00 02/09/18 09:02 02/09/18 12:00 Temperature 97.6 F Pulse Rate 64 75 65 Respiratory Rate 12 18 Blood Pressure 114/56 L Pulse Oximetry 95 97 Pulse Oximetry [Resting on Room Air] Pulse Oximetry [Resting with Oxygen] 02/09/18 13:32 02/09/18 14:00 02/09/18 15:50 Temperature Pulse Rate 77 Respiratory Rate 12 Blood Pressure Pulse Oximetry 95 89 L Pulse Oximetry [Resting on Room Air] Pulse Oximetry [Resting with Oxygen] 02/09/18 16:00 02/09/18 16:54 02/09/18 18:00 Temperature 98.1 F Pulse Rate 84 78 Respiratory Rate 18 Blood Pressure 155/65 H Pulse Oximetry 96 Pulse Oximetry [Resting on Room Air] 88 L Pulse Oximetry [Resting with Oxygen] 97 02/09/18 20:00 02/09/18 21:23 08/12/18 23:53 Temperature 98.0 F Pulse Rate 83 76 67 Respiratory Rate 18 18 Blood Pressure 151/66 H Pulse Oximetry 94 L 95 Pulse Oximetry [Resting on Room Air] Pulse Oximetry [Resting with Oxygen] 02/10/18 04:00 02/10/18 04:05 02/10/18 04:38 Temperature 97.7 F Pulse Rate 71 62 70 Respiratory Rate 18 18 Blood Pressure 148/65 H Pulse Oximetry 92 L Pulse Oximetry [Resting on Room Air] Pulse Oximetry [Resting with Oxygen] 02/10/18 07:58 Temperature Pulse Rate 63 Respiratory Rate 16 Blood Pressure Pulse Oximetry 98 Pulse Oximetry [Resting on Room Air] Pulse Oximetry [Resting with Oxygen] Intake & Output 02/09/18 02/10/18 02/10/18 18:59 06:59 18:59 Intake Total 1070 / 1070 1120 / 1120 Output Total 700 / 700 950 / 950 Balance 370 / 370 170 / 170 Weight 129.3 kg Intake: IV 350 / 350 1000 / 1000 NS Inj 1,000 ML @ 60 mls/hr IV. 1000 / 1000 CONT .[id number] [facility] Rx#:[id number] Azithromycin Inj 500 MG In NS 250 / 250 Inj 250 ML @ 250 mls/hr IV.SIG Q24H [facility] Rx#:[id number] Rocephin Inj 1,000 MG In NS Inj 100 / 100 100 ML @ 200 mls/hr IV.SIG Q24H [facility] Rx#:[id number] Oral 720 / 720 120 / 120 Output: Urine 700 / 700 950 / 950 Other: Date of Last Bowel Movement 02/07/18 - Constitutional no acute distress - Routine Respiratory Exam Present: CTA bilaterally (minimal wheezing.) - Routine Cardiovascular Exam Present: RRR - Routine Abdominal Exam Present: soft - Routine Extremities Exam Comments: no pedal edema. - Routine Neurological Exam Present: alert, oriented X3 Results Procedures completed during hospitalization: none Labs on day of discharge: Labs from last 24 hours 02/09/18 02/09/18 08:10 08:10 WBC 10.8 RBC 3.90 L Hgb 11.8 Hct 35.0 MCV 89.6 MCH 30.3 MCHC 33.8 RDW 14.7 Plt Count 177 MPV 9.2 Neut % (Auto) 73.8 H Lymph % (Auto) 15.0 Long % (Auto) 9.5 H Eos % (Auto) 1.3 Baso % (Auto) 0.4 Neut # (Auto) 7.9 H Lymph # (Auto) 1.6 Long # (Auto) 1.0 H Eos # (Auto) 0.1 Baso # (Auto) 0.0 WBC Differential . Differential Comment Auto diff final Sodium 143 Potassium 4.0 Chloride 107 Carbon Dioxide 28.6 Anion Gap 7 BUN 13 Creatinine 0.67 Estimated GFR 87 L Random Glucose 92 Calcium 8.2 L Preliminary micro results at discharge 02/07/18 12:30 Aerobic Blood Culture - Preliminary Blood - Peripheral No growth in 2 days 02/07/18 12:30 Aerobic Blood Culture - Preliminary Blood - Peripheral No growth in 2 days Anaerobic Blood Culture - Preliminary No growth in 2 days - Impressions ITS Impressions Chest X-Ray 02/07/18 12:08 CONCLUSION: Mild patchy opacity at the right lung base which could represent early infiltrate or pneumonia. Discharge Plan - Discharge Disposition Patient Disposition: 01 Discharge Home - Discharge Condition Condition: Stable - Discharge Details Anticipated Discharge Date: 02/07/18 - Physicians Team Attending Provider: Samir Castellanos Other Providers: [employer]
[2018-02-10] MEDS: guaiFENesin 600 MG ER Tablet PO SCH (08:59)
[2018-02-10] MEDS: amLODIPine 10 MG Tablet PO SCH (08:59)
[2018-02-10] MEDS: Senna/Docusate Sodium 8.6/50 MG Tablet PO SCH (09:00)
[2018-02-10 10:14] VITALS: RESP 20
[2018-02-10 13:28] VITALS: BP 138/64; TEMP 97.2
--- NOTE | 2018-02-10 14:05 | P.PNADD ---
Addendum to Inpatient Note Reason for Addendum: Additional Documentation (walk test was repeated and reportedly passed the walk test. patient will be discharged home.)
[2018-02-10 14:06] VITALS: O2SAT 92
[2018-02-10 15:27] VITALS: PULSE 59
== END 2018-02-10 14:48 | disposition home or self-care (01) ==
LOC: NEPC 11:27 → NEDA 13:28 → N04 17:55
PROVIDERS: ADMIT Internal Medicine; ATTEND Internal Medicine